=== PATIENT | male | born 1960 | race Caucasian/White ===

== ENCOUNTER 2020-02-19 09:24 | Emergency (ER) | payer OTHER, BC ==
[2020-02-19 09:27] VITALS: BP 122/91; PULSE 97; TEMP 97.7; BMI 29.2
[2020-02-19] MEDS ORDERED: KETOROLAC TROMETHAMINE 30 MG/1 ML VIAL IM ONE (11:06)
[2020-02-19] MEDS ORDERED: KETOROLAC TROMETHAMINE 30 MG/1 ML VIAL ONE (11:17)
== END 2020-02-19 11:20 | disposition home or self-care (01) ==
LOC: JERFT 09:24
PROC: 3E0233Z Introduction of Anti-inflammatory into Muscle, Percutaneous Approach (ICD-10-PCS; principal; 2020-02-19)
DX: S43.401A Unspecified sprain of right shoulder joint, initial encounter (principal); S13.4XXA Sprain of ligaments of cervical spine, initial encounter; V89.2XXA Person injured in unspecified motor-vehicle accident, traffic, initial encounter
CPT/HCPCS: 70450-TC; 72125-TC; 73030-TC-RT-FY; 99285-25